=== PATIENT | male | born 1965 | race Two or more races ===

== ENCOUNTER 2024-05-08 22:34 | Emergency (ER) | payer OTHER ==
[~2024-05-08] VITALS: Ht 177.8 cm; Wt 84.4 kg
[2024-05-08] MEDS ORDERED: SIMVASTATIN5 MG (22:43)
[2024-05-08] MEDS ORDERED: FAMOtidine 10 MG/ML (4ML VIAL) IV ONE (23:15)
[2024-05-08] MEDS ORDERED: ONDANSETRON HCL 2 MG/ML VIAL IV ONE (23:15)
[2024-05-08] MEDS ORDERED: 0.9 % SODIUM CHLORIDE 1,000 ML IV ONE (23:15)
[2024-05-09 00:54] LABS: URINE APPEARANCE Clear; URINE BILIRRUBIN Negative (NEGATIVE); URINE BLOOD Negative; URINE COLOR Yellow; URINE GLUCOSE Negative (NEGATIVE); URINE KETONE Negative (NEGATIVE); URINE LEUKOCYTE Negative; URINE NITRATE Negative; URINE PROTEIN Negative (NEGATIVE); URINE UROBILINOGEN 0.2 E.U./dl
[2024-05-09 00:56] LABS: HEMATOCRIT 42.5 % (39.0-48.0); HEMOGLOBIN 14.7 g/dL (13-16.00); MEAN CELL VOLUME 93.6 fL (80.0-100.00); MEAN CORPUSCULAR HEMOGLOBIN 32.4 pg (27.00-32.0); MEAN CORPUSCULAR HGB CONC 34.6 g/dl (32.0-36.0); PLATELET COUNT 197 K/uL (150-450); RED BLOOD COUNT 4.54 M/uL (4.00-6.00); RED CELL DISTRIBUTION WIDTH 12.9 % (11.5-14.5)
[2024-05-09 00:57] LABS: URINE BACTERIA 7.3 uL (0.0-1933); URINE CAST 1.47 uL (0.0-1.40); URINE EPITHELIAL CELLS 1.4 uL (0.0-38.8); URINE RBC 3.3 uL (0.0-20.8); URINE WBC 3.1 uL (0.0-23.2)
[2024-05-09 01:10] LABS: INR 1.01; PARTIAL THROMBOPLASTIN TIME 23.6 SECONDS (22.0-34.0)
[2024-05-09 01:18] LABS: ALBUMIN 3.6 gm/dL (3.4-5.0); BILIRUBIN TOTAL 0.73 mg/dL (0.3-1.2); CALCIUM 8.5 mg/dL (8.5-10.1); CREATININE SERUM 1.04 mg/dL (0.70-1.30); GFR 73.35; GLOBULINA 2.9 G/DL (2.4-3.5); POTASSIUM 3.96 mEq/L (3.5-5.1); TOTAL PROTEIN 6.5 gm/dL (6.4-8.2)
[2024-05-09] MEDS ORDERED: PROMETHAZINE HCL 25 MG/ML AMPUL IM STA (02:59)
[2024-05-09] MEDS ORDERED: PROMETHAZINE HCL 25 MG/ML AMPUL ONE (03:01)
== END 2024-05-09 10:49 | disposition home or self-care (01) ==
LOC: ER 22:34
PROVIDERS: General Practice
DX: R55 Syncope and collapse (principal); R11.10 Vomiting, unspecified; I10 Essential (primary) hypertension